=== PATIENT | female | born 1945 | race Caucasian/White ===

== ENCOUNTER → 2020-07-23 | Outpatient (CLI) | payer MEDICARE, OTHER | LOC: HEART 5 10:32 | DX: J45.991 Cough variant asthma (principal); R94.2 Abnormal results of pulmonary function studies; F17.210 Nicotine dependence, cigarettes, uncomplicated | CPT/HCPCS: 94010; 94729 ==

== ENCOUNTER → 2021-02-07 | Outpatient (CLI) | payer MEDICARE | LOC: HEART 5 14:32 | DX: J30.9 Allergic rhinitis, unspecified (principal); J45.991 Cough variant asthma | CPT/HCPCS: 95012 ==